=== PATIENT | male | born 1945 | race Caucasian/White ===

== ENCOUNTER → 2017-05-20 | Outpatient (CLI) | payer MEDICARE ==
--- NOTE | 2017-05-20 11:53 | RADRPT ---
EXAM DATE/TIME: 05/20/2017 00:00 [place] COMPARISON: No previous studies available for comparison. INDICATIONS : BLE Pain and Claudication TECHNIQUE: Five-station segmental examination of the lower extremities was performed pre and post extercise. Pulsed-cuff waveform tracings and pressures were recorded. Ankle-brachial indices and toe-brachial indices were calculated. PRESSURES (mmHg): Pre Exercise: Brachial (arm): Right 170 Left 167 Ankle: Right 157 Left 214 ROLAND: Right 0.92 Left 1.26 TBI: Right 0.52 Left 0.71 Post Exercise: Brachial (arm): Right 204 Ankle: Right CNO Left CNO PULSED CUFF WAVEFORMS: Demonstrate normal amplitude bilaterally. CONCLUSION: The ABIs are within normal limits bilaterally. TBIs are decreased, right greater than left suggestive of small vessel disease. Eduardo Haji MD on May 20, 2017 at 11:47 Board Certified Radiologist. This report was verified electronically.
== END ==
LOC: HCAV 09:51
PROVIDERS: ATTEND Internal Medicine Gastroenterology
DX: M79.604 Pain in right leg (principal); M79.605 Pain in left leg
CPT/HCPCS: 93924